=== PATIENT | male | born 1965 | race Caucasian/White ===

== ENCOUNTER → 2018-07-28 | Outpatient (CLI) | payer OTHER | LOC: FIMAGING 09:40 | PROVIDERS: ATTEND Orthopaedic Surgery | DX: M17.12 Unilateral primary osteoarthritis, left knee (principal) ==

== ENCOUNTER 2018-08-01 07:45 | Observation (INO) | payer OTHER ==
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
[~2018-08-01 07:45] MED LIST: BACITRACIN 50,000 UNITS/10 ML SYR IRR ONE; BUPIVACAINE/EPI 0.5% 30 ML SDV ONE; CALCIUM CHLORIDE 1 GM/10 ML INJ ONE; POLYMYXIN B SULFATE 500,000 UNIT/10 ML SYR IRR ONE; THROMBIN (BOVINE) 5,000 UNIT VIAL TP ONE; TRANEXAMIC ACID 3,000 MG/50 ML BAG IRR ONE
[2018-08-01] MEDS ORDERED: LR 1,000 ML IV SCH ×2 (07:59→12:30)
[2018-08-01] MEDS ORDERED: PREGABALIN 150 MG CAP PO ONE (07:59)
[2018-08-01] MEDS ORDERED: ceFAZolin 2 GM/DEXTROSE 100 ML IV ONE (07:59)
[2018-08-01] MEDS ORDERED: LR 1,000 ML IV ONE (08:01)
[2018-08-01] MEDS ORDERED: ceFAZolin 3 GM in D5W 100 ML IV ONE (08:30)
[2018-08-01] MEDS ORDERED: THROMBIN (BOVINE) 5,000 UNIT VIAL TP ONE (08:57)
[2018-08-01] MEDS ORDERED: CALCIUM CHLORIDE 1 GM/10 ML INJ ONE (08:57)
[2018-08-01] MEDS ORDERED: POLYMYXIN B SULFATE 500,000 UNIT/10 ML SYR IRR ONE (08:58)
[2018-08-01] MEDS ORDERED: BUPIVACAINE 0.5% 30 ML SDV ONE (08:58)
[2018-08-01] MEDS ORDERED: EPINEPHrine 1 MG/ML INJ ONE (08:58)
[2018-08-01] MEDS ORDERED: BACITRACIN 50,000 UNITS/10 ML SYR IRR ONE (08:58)
[2018-08-01] MEDS ORDERED: BUPIVACAINE/DEXTROSE 7.5MG/ML 2 ML SPINAL AMP SP ONE (09:22)
[2018-08-01] MEDS ORDERED: ROPIVACAINE 0.2% 80 MG, EPINEPHrine 0.2 MG, KETOROLAC TROMETHAMINE 30 MG, morphINE 10 M... IU ONE (09:30)
[2018-08-01] MEDS ORDERED: TRANEXAMIC ACID 3,000 MG in NS (SYRINGE) 50 ML IRR ONE (09:30)
--- NOTE | 2018-08-01 09:33 | PDHPUP ---
History & Physical Update H&P update statement: This history and physical update is based on an assessment of the patient which was completed after admission or registration (within 24 hours), but prior to the surgery/procedure. H&P update: H&P reviewed & patient examined, no change in patient's condition since H&P completed
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
[2018-08-01] MEDS ORDERED: MIDAZOLAM 2 MG/2 ML VIAL IVP ONE (09:56)
[2018-08-01] MEDS ORDERED: PROPOFOL/EMULSION 500 MG/50 ML BOTTLE IV ONE ×2 (10:04→10:41)
[2018-08-01] MEDS ORDERED: MIDAZOLAM 2 MG/2 ML VIAL ONE (10:19)
[2018-08-01] MEDS ORDERED: NALOXONE HCL 0.4 MG/ML INJ IVP PRN (11:10)
[2018-08-01] MEDS ORDERED: HYDROCODONE/APAP 5/325 TAB PO PRN (11:10)
[2018-08-01] MEDS ORDERED: HYDROmorphONE/DILAUDID 2 MG/ML INJ IVP PRN (11:10)
[2018-08-01] MEDS ORDERED: ONDANSETRON 4 MG/2 ML VIAL IVP PRN ×2 (11:10→12:25)
[2018-08-01] MEDS ORDERED: ACETAMINOPHEN 500 MG TAB PO PRN (11:10)
[2018-08-01] MEDS ORDERED: PROMETHAZINE HCL 25 MG/ML INJ IVP PRN ×2 (11:10→12:25)
[2018-08-01] MEDS ORDERED: oxyCODONE IR 5 MG TAB PO PRN (11:10)
[2018-08-01] MEDS ORDERED: fentaNYL 100 MCG/2 ML INJ IVP PRN (11:10)
[2018-08-01] MEDS ORDERED: PROPOFOL 200 MG/20 ML VIAL ONE (12:02)
[2018-08-01] MEDS ORDERED: ONDANSETRON DISINTEGRATING 4 MG TAB PO PRN (12:25)
[2018-08-01] MEDS ORDERED: TAPENTADOL HCL 50 MG TAB PO PRN (12:25)
[2018-08-01] MEDS ORDERED: POLYETHYLENE GLYCOL 3350 17 GM PKT PO PRN (12:25)
[2018-08-01] MEDS ORDERED: PROMETHAZINE HCL 25 MG SUPPR PR PRN (12:25)
[2018-08-01] MEDS ORDERED: diphenhydrAMINE 25 MG CAP PO PRN (12:25)
[2018-08-01] MEDS ORDERED: TEMAZEPAM 15 MG CAP PO PRN (12:25)
[2018-08-01] MEDS ORDERED: LACTULOSE 20 GM/30 ML UDCUP PO PRN (12:25)
[2018-08-01] MEDS ORDERED: METOCLOPRAMIDE 10 MG/2 ML VIAL IVP PRN (12:25)
[2018-08-01] MEDS ORDERED: MAGNESIUM HYDROXIDE 30 ML UDCUP PO PRN (12:25)
[2018-08-01] MEDS ORDERED: BISACODYL 10 MG SUPP PR PRN (12:25)
[2018-08-01] MEDS ORDERED: DIPHENOXYLATE/ATROPINE LOMOTIL 1 TAB PO PRN (12:25)
--- NOTE | 2018-08-01 12:25 | POSTOPPROG ---
Post Op Note Date of Operation: 08/01/18 Surgeon: Arti Lance [employer] Officer: [employer]train Anesthesia: Epidural, IV Sedation Pre-op Diagnosis: l knee oa Procedure: l tkr with mariano Inf/Abcess present in the surg proc area at time of surgery?: No Depth: Deep Incisional (Fascial) EBL: 100-500
--- NOTE | 2018-08-01 12:34 | POSTANESTH ---
Post Anesthetic Evaluation Cardiovascular Status: Normal, Stable, Similar to Pre-Op Cond Respiratory Status: Normal, Stable, Similar to Pre-op Cond. Level of Consciousness/Mental Status: Can Participate in Eval, Alert and Oriented Pain Control: Adequate, Prn Tx Ordered Nausea/Vomiting Control: Adequate, Prn Tx Ordered Complications Possibly Related to Anesthesia: None Noted
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
[2018-08-01] MEDS: oxyCODONE IR 5 MG TAB PO PRN ×3 (15:23→21:34)
[2018-08-01] MEDS: CYCLOBENZAPRINE 10 MG TAB PO PRN (15:24)
[2018-08-01] MEDS: ceFAZolin 2 GM/DEXTROSE 100 ML IV SCH (15:27)
[2018-08-01] MEDS: KETOROLAC 15 MG/1 ML SDV IVP SCH (17:01)
[2018-08-01] MEDS: traMADol 50 MG TAB PO SCH (17:05)
[2018-08-01] MEDS: ACETAMINOPHEN 325 MG TAB PO SCH (17:29)
[2018-08-01] MEDS: FAMOTIDINE 20 MG TAB PO SCH (21:26)
[2018-08-01] MEDS: SENNOSIDES/DOCUSATE SODIUM TAB PO SCH (21:26)
[2018-08-02] MEDS: KETOROLAC 15 MG/1 ML SDV IVP SCH ×3 (00:05→11:17)
[2018-08-02] MEDS: ACETAMINOPHEN 325 MG TAB PO SCH ×3 (00:05→11:18)
[2018-08-02] MEDS: ceFAZolin 2 GM/DEXTROSE 100 ML IV SCH (00:06)
[2018-08-02] MEDS: traMADol 50 MG TAB PO SCH ×3 (00:06→11:17)
[2018-08-02] MEDS: CYCLOBENZAPRINE 10 MG TAB PO PRN ×2 (06:21→15:51)
[2018-08-02] MEDS: SENNOSIDES/DOCUSATE SODIUM TAB PO SCH (07:26)
[2018-08-02] MEDS: FAMOTIDINE 20 MG TAB PO SCH (07:26)
[2018-08-02] MEDS: oxyCODONE IR 5 MG TAB PO PRN ×3 (07:36→15:49)
[2018-08-02] MEDS ORDERED: RIVAROXABAN 10 MG TAB PO SCH (09:00)
--- NOTE | 2018-08-02 11:22 | ASMTCMCOM ---
CM Note CM Note Notes: Pt had planned knee surgery, resides with spouse. PT rec home/outpatient. Anticipate pt will d/c when medically stable. No CM d/c needs identified. CM available for changes/needs. Date Signed: 08/02/2018 11:22 AM Electronically Signed By:SHIELA Barton
[2018-08-02] MEDS ORDERED: DIAZEPAM 2 MG TAB PO PRN (12:50)
--- NOTE | 2018-08-02 14:41 | SOAPPROG ---
SOAP Progress Note Assessment/Plan: Assessment: Olvin is POD#1 s/p LTKA. He reports he has been having pain and spasm. He was getting in bed earlier today and heard a pop. Pain has not increased since this episode. PE: Dressing is clean and dry. ROM is with minimal pain. Calf is soft to compression without pain. Extensor mechanism intact. NV intact LLE Plan: We will get radiographs of his knee to ensure we are not missing something. Keep dressing clean and dry for 5 days. PT/OT for ROM, strengthening , gait training. Prescriptions for pain medication and valium in chart. Patient has script for Xarelto. Xarelto x 10 days post op. If we can get his pain under control, we will consider discharging him home as long as radiographs are normal. 08/02/18 14:37 Objective: Vital Signs Temp Pulse Resp BP Pulse Ox 37.3 C 77 18 125/69 H 95 08/02/18 11:06 08/02/18 11:06 08/02/18 11:06 08/02/18 11:06 08/02/18 11:06 Laboratory Results 08/02/18 07:20 08/01/18 08/02/18 08/03/18 05:59 05:59 05:59 Intake Total 2755 500 Output Total 500 250 Balance 2255 250
[2018-08-02 15:30] VITALS: BP 131/63
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
== END 2018-08-02 18:24 | disposition home or self-care (01) ==
LOC: F3N 07:45
PROVIDERS: ADMIT Orthopaedic Surgery; ATTEND Orthopaedic Surgery
DX: M17.12 Unilateral primary osteoarthritis, left knee (principal)
CPT/HCPCS: 27447; 73560; 97110; 97116; 97161; 97165; G0378; J0171; J0690; J1885; J2250; J2270; J2405; J2704; J2795

== ENCOUNTER → 2018-08-07 | Outpatient (CLI) | payer OTHER | LOC: EMCIMAGING 17:20 | PROVIDERS: ATTEND Physician Assistant | DX: R22.42 Localized swelling, mass and lump, left lower limb (principal) | CPT/HCPCS: 93971-PN ==